=== PATIENT | female | born 1965 | race Caucasian/White ===

== ENCOUNTER → 2022-06-22 | Outpatient (CLI) | payer SELFPAY ==
--- NOTE | 2022-06-22 08:02 | MRI_ITS ---
STUDY: MRI LUMBAR SPINE WITHOUT CONTRAST REASON FOR EXAM: Female, 57 years old. Lumbar Pain with Left Radiculopathy TECHNIQUE: Standardized fat and water weighted pulse sequences were obtained in the sagittal and axial planes. COMPARISON: None FINDINGS: There is straightening of the normal lumbar lordosis. There is no substantial scoliosis. Normal conus medullaris that terminates at the T12-L1 level. No marrow edema or compression deformity or fractures present. Predominance of red marrow reactivation noted throughout the osseous structures. Benign fatty hemangiomas are present at several levels. No aggressive abnormality is seen. L1-2: Mild Schmorl''s node change. Normal disc height, hydration and morphology. Normal bilateral facet joints. Normal central canal and bilateral lateral recesses. Normal bilateral intervertebral neural foramina. L2-3: Normal endplates. Normal disc height, hydration and morphology. Normal bilateral facet joints. Normal central canal and bilateral lateral recesses. Normal bilateral intervertebral neural foramina. L3-4: Normal endplates. Normal disc height, hydration and morphology. Mild facet joint hypertrophy. Normal central canal and bilateral lateral recesses. Normal bilateral intervertebral neural foramina. L4-5: Normal endplates. Diffuse disc desiccation. Normal disc height and morphology. Normal bilateral facet joints. Normal central canal and bilateral lateral recesses. Normal bilateral intervertebral neural foramina. L5-S1: Diffuse disc desiccation with moderate disc space narrowing and a diffuse disc spur complex. Mild facet joint hypertrophy. Normal central canal and bilateral lateral recesses. Normal bilateral intervertebral neural foramina. Normal visualized sacral ala. There is mild paraspinal muscular atrophy. MRI/Spine Lumbar (Routine) IMPRESSION: 1. Multilevel degenerative changes, as described above. Electronically Signed: Gutierrez Reilly MD at 12:42 EDT Reading Location ID and State: [facility] / [place] , Service support ,
== END | disposition home or self-care (01) ==
PROVIDERS: Visit Provider Orthopaedic Surgery
DX: M51.37 Other intervertebral disc degeneration, lumbosacral region (principal)
CPT/HCPCS: 72148

== ENCOUNTER → 2022-11-15 | Outpatient (CLI) | payer SELFPAY ==
--- NOTE | 2022-11-15 16:16 | MRI_ITS ---
MRI of the lumbar spine Comparison study June 22, 2022 INDICATION: Severe back pain TECHNIQUE: Limited study was performed due to inability of the patient to cooperate due to extreme pain consisting of the T1-weighted images in the coronal projection and T2-weighted images in the sagittal projection FINDINGS: There is mild dextroscoliosis or splinting secondary to muscle spasm.. No evidence for acute fracture or subluxation. There are scattered hemangiomata or interosseous lipomatous deposits.. Conus medullaris terminates at T12-L1 There is diffuse degeneration of the disc at L4-5 without focal disc protrusion. At L5-S1, there is narrowing of the disc space and desiccation of the disc with moderate bulging disc osteophyte complex creating moderate bilateral neural foraminal stenosis Given the limited nature of the study y there is little significant change seen when compared with prior exam. MRI/Spine Lumbar (Routine) IMPRESSION: Spondylosis and disc degeneration L4-5 and L5-S1 Bilateral neural foraminal stenosis at L5-S1 secondary to moderate bulging disc osteophyte complex Electronically Signed: Roscoe Moreno MD at 17:52 EST ,
== END | disposition home or self-care (01) ==
PROVIDERS: Visit Provider Orthopaedic Surgery
DX: M51.26 Other intervertebral disc displacement, lumbar region (principal); M51.37 Other intervertebral disc degeneration, lumbosacral region
CPT/HCPCS: 72148

== ENCOUNTER → 2022-11-17 | Outpatient (CLI) | payer SELFPAY ==
--- NOTE | 2022-11-17 12:17 | CT_ITS ---
We are attempting to reach an attending provider to discuss findings. An addendum with communication details will be sent when the communication is complete. STUDY: CT CHEST, ABDOMEN T PELVIS WITH CONTRAST REASON FOR EXAM: Female, 57 years old. Pain RADIATION DOSAGE (If Supplied By Facility): CTDIvol = ( 11.01 ) mGy, DLP = ( 471.94 ) mGycm TECHNIQUE: Transaxial imaging was performed following intravenous administration of IV 100mL Isovue-300. Multiplanar coronal and sagittal images were reformatted. Individualized dose optimization techniques were used for this CT. COMPARISON: MRI lumbar spine November 15, 2022 FINDINGS: CHEST The lungs are clear without focal consolidation pleural effusion or pulmonary edema. There is no visualized pneumothorax. There is no demonstrated pleural abnormality. Normal heart and pericardium. Normal mediastinum. Normal hilar regions. Normal unenhanced pulmonary arteries. Normal aorta arch and descending thoracic aorta. Normal osseous structures. There is a 3 mm nonspecific low attenuating structure in the liver image #12. Liver is otherwise homogeneous. ABDOMEN The visualized lung bases are unremarkable. The visualized portions of the heart are within normal limits. A 3 mm nonspecific low attenuating structure image 12. Normal gallbladder and extrahepatic biliary system. Normal spleen. The visualized splenule anterior to the spleen measuring 1 cm. There is a nonspecific low attenuating cystic structure within the pancreas measuring 5.6 mm which on the coronal view is suggestive of a focus of fat. Normal bilateral adrenal glands. Normal right kidney. Normal left kidney. Normal visualized stomach. Normal small intestine. There is mild to moderate stool within the colon. The appendix is visualized and appears normal. Aorta is partially calcified. Normal inferior vena cava. Normal retroperitoneum. There is a large lobulated abnormal enhancing mass which appears to extend from the level of the left side of the sacrum and possibly the left side sacrum now extending into the left side of the pelvis and the left side perirectal fat as well as extending outside the confines of the pelvis through the piriform canal posterior to the acetabulum. This mass collectively measures 9.8 x 12.3 x 6.8 cm. There is an erosive soft tissue mass involving the left side of the sacrum .. Note is made of visualized hyperemic or varicosities peripheral to the tumor. PELVIS Normal urinary bladder. The uterus is of normal size. The adnexa bilaterally appears normal. Normal visualized small intestine. There is mild to moderate stool in the colon. There is no pelvic fluid. There is a large left-sided pelvic mass which appears to be emanating from the left side of the pelvis possibly in the left side sacral neural foramen that is partially seen and described on the recent MRI of the lumbar spine only. Differential would include the possibility of the bony located mass and/or soft tissue mass which is extended into the left side of the sacrum and the sacral foramen. The appearance of the S3 vertebral body to the level of the S4 which has the appearance of the mass extending out of the bony structure towards the left side of the pelvis into the left-sided gluteal space posteriorly locating the gluteus minimus and she muscle. Aorta is partially calcified. There is visualized extension of the left side internal iliac artery towards this mass. There visualized bilateral tubal ligation clips. There is a large mass extending into the left lower pelvic abdominal wall posterior to the left acetabulum and the left side greater trochanter. There is visualized bony osteopenia otherwise. There is a mild broad disc bulge L4-L5 with minimal neural foramina narrowing. At L5-S1 there is vacuum phenomenon and minimal neural foramina narrowing. The bones are somewhat osteopenic. There is an invasive mass in the left side of the pelvis as detailed above. CT/CT Chest, Abd, Pel w/Contrast IMPRESSION: 9.8 x 12.3 x 6.8 cm. Mass in the left side of the pelvis extending through the left side performed canal and/or soft tissues from the left side of the sacrum from a erosive invasive-appearing process out of the canal out of the pelvis into the left-sided gluteal soft tissues. This mass is peripherally enhancing. The differential includes the possibility of a neurogenic origin tumor extending from the left side sacrum or canal. Versus the possibility of a sarcoma or potentially a large metastatic focus.. Consider etiologies such as chordoma, possible malignant peripheral nerve sheath tumor. This tumor is unknown to the patient recommend consideration for soft tissue sampling. Electronically Signed: Caridad Dc MD at 14:11 EST ,
== END | disposition home or self-care (01) ==
LOC: CT 12:14
PROVIDERS: Referring Provider Orthopaedic Surgery; Visit Provider Orthopaedic Surgery
DX: D49.89 Neoplasm of unspecified behavior of other specified sites (principal); I70.0 Atherosclerosis of aorta; M85.80 Other specified disorders of bone density and structure, unspecified site; R19.00 Intra-abdominal and pelvic swelling, mass and lump, unspecified site; M51.26 Other intervertebral disc displacement, lumbar region; M48.07 Spinal stenosis, lumbosacral region
CPT/HCPCS: 71260; 74177; Q9967

== ENCOUNTER 2022-11-28 08:11 | Outpatient (CLI) | payer BC, SELFPAY ==
[2022-11-28] VITALS (9 sets, daily range): BP systolic 112–167; BP diastolic 60–101; PULSE 88–120; RESP 14–21; TEMP 37.3; O2SAT 95–99; BMI 21.4
--- NOTE | 2022-11-28 | IMM_PTH ---
PATIENT: NUNU ALDRICH LOC: CT U#:[id number] AGE/SX: 57/F ROOM: RE11/28/[address]: Dr. Cisco Dueñas MD : 1965 BED: DIS: 11/28/2022 SPEC #: [id number] RECD: 11/29/22 14:02 STATUS: MONSE REQ #: [id number] LUISA: 11/28/22 00:[address]: Cisco Dueñas DEPT: IMMUNOHISTOCHEMISTRY RECD BY: Laura Bishop ENTERED: 11/29/22 14:06 SP TYPE: IMMUNO OTHR DR: No Primary Care Phys Tissues: Buttock, NOS Procedures: SMA (add) CD31 (add) CD34 (add) CK8 (add) DESMIN (add) KI-67 (add) P53 (add) Vimentin (add) FACTOR VIII (add) Pankeratin (initial) MELAN-A (add) S-100 (add) PHYSICIAN & INSTITUTION [place] [phone] SPECIMEN INFORMATION: Tissue Source: Left gluteal mass Clinical Info: Left gluteal mass Specimen Number: [id number] CPT code: 44687, 50747 x11 METHODOLOGY: Deparaffinized sections of prefer/formalin-fixed tissue or PAP/DQ stained slides are incubated with monoclonal/polyclonal antibodies/oligonucleotide probes. Localization is made via biotin free immunoperoxidase method. Appropriate controls are performed and reacted as expected. Results on target cell population are indicated in the following table: RESULTS: ANTIBODY / CLONE RESULT AE1-3 (AE1/AE3/PCK26) negative CK8 (71kbhfN68) negative Vimentin (V9) positive CD31 (CRISTELA/70A) negative Factor VIII (R Ag) negative CD34 (QBEnd-10) negative Actin (1A4) positive, focal Desmin (CE-R-11) negative Melan A (A103) negative S-100 (4C4.9) negative P53 (DO-7) negative Ki-67 (30-9) positive, ~85% These tests were developed and their performance characteristics determined by [facility]. They may not have been cleared or approved by the U.S. Food and Drug Administration. The FDA has determined that such clearance or approval is not necessary. The above immunohistochemical/dualISH markers are ordered and reviewed by the Pathologist. 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 See comment. SHILPA:catherine 12/07/2022 The specimen is sent to [facility] for expert opinion, reviewed by Dr. Hughes and the above diagnosis is rendered. The complete report is viewable in the patient's EMR. Case has been reviewed in consultation with Dr. Aguilera who concurs with the above diagnosis. IDC:AM
--- NOTE | 2022-11-28 08:26 | CT_ITS ---
PROCEDURE: CT GUIDED biopsy of the left posterior pelvic mass. DATE: 11/28/2022. INDICATION: Female, 57 years old. Left gluteal/posterior pelvic mass PHYSICIAN: Fam Bolanos M.D. RADIATION DOSAGE (If Supplied By Facility): CTDIvol = ( 12.3 ) mGy, DLP = ( 216.84 ) mGycm. Individualized dose optimization techniques were utilized. PROCEDURE: The risks, benefits, and alternatives to the procedure were explained to the patient. The specific risk of hemorrhage requiring further treatment or intervention was detailed and accepted. Follow-up instructions were discussed with the patient as well. Written informed consent was obtained. The patient was brought into the CT suite and placed in the prone position. . An appropriate entry site was identified. The overlying skin was prepped and draped in the usual sterile fashion. 1% lidocaine was administered subcutaneously for local anesthesia. Conscious sedation was performed. The patient received 3 mg of VERSED and 75 mcg of FENTANYL intravenously. Conscious sedation was started at 9:34 AM and terminated at 9:51 AM. The patient was independently monitored by the department nurse. Under CT guidance, a total of 6 passes were performed utilizing an 18-gauge core biopsy needle system. The specimens were then placed in the appropriate fluid and transported to the laboratory for analysis. Hemostasis was obtained. The patient tolerated the procedure well without immediate complications. CT/Biopsy/Inj or Needle Placement IMPRESSION: Successful CT guided biopsy of the left gluteal/posterior pelvic mass, as described above. Conscious sedation protocol was followed. Electronically Signed: Fam Bolanos MD at 10:18 EST ,
[2022-11-28 08:33] LABS: Basophil# 0.05 X10^3/uL; Basophil% 0.4 % (0-1); Eosinophil# 0.14 X10^3/uL; Eosinophils% 1.2 % (0-5); Hematocrit 39.8 % (37-47); Hemoglobin 12.6 g/dL (12.0-15.0); Lymphocyte % 15.2 % (19-41); Mean Corp Hgb Conc 31.7 g/dL (32-36); Mean Corpuscular Hgb 26.4 pg (27.0-32.0); Mean Corpuscular Volume 83.4 fL (81-99); Monocyte# 0.83 X10^3/uL; NRBC Flagged by Analyzer 0 % (0-5); Neutrophil # 8.96 X10^3/uL (2.7-7.7); Neutrophil % 75.7 % (47-70); Platelet Count 709 K/mm3 (150-450); RBC Distribution Width CV 13.5 % (11.6-14.6); RBC Distribution Width SD 41.3 fl (35.1-43.9); Red Blood Count 4.77 M/mm3 (4.2-5.4); White Blood Count 11.8 K/mm3 (4.4-11.0)
[2022-11-28] MEDS: 0.9% Saline Lock 10 ML Syringe IV (09:04)
[2022-11-28 09:09] LABS: International Normalized Ratio 1.2; Prothrombin Time (Protime)PT. 14.5 SECONDS (11.7-14.9)
[2022-11-28 09:10] LABS: Partial Thromboplast Time 31.3 Seconds (24.1-36.2)
[2022-11-28] MEDS: Ondansetron 4 MG/2 ML Vial IV (09:32)
[2022-11-28] MEDS: Midazolam 2 MG/2 ML Syringe IV ×2 (09:33→09:48)
[2022-11-28] MEDS: fentaNYL 100 MCG/2 ML Ampul IV ×2 (09:34→09:48)
--- NOTE | 2022-11-28 09:40 | ASPIGT_PTH ---
PATIENT: NUNU ALDRICH LOC: CT U#:[id number] AGE/SX: 57/F ROOM: RE11/28/[address]: Dr. 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 See comment. SJ:catherine 12/07/2022 COMMENT The specimen is evaluated at the time of biopsy by Dr. Birmingham. Immediate Evaluation = Rare atypical spindle cells noted. The specimen is sent to [facility] for expert opinion, reviewed by Dr. Hughes and the above diagnosis is rendered. The complete report is viewable in the patient's EMR. Immunohistochemistry performed here ([id number]) and also additional immunohistochemical stains performed at [facility] supports the above diagnosis. MDM2 by FISH is pending. Case has been reviewed in consultation with Dr. Aguilera who concurs with the above diagnosis. IDC:AM MICROSCOPIC DESCRIPTION Slides are reviewed. GROSS DESCRIPTION Received in fixative is one container labeled with the patient's name and designated left gluteal mass. The specimen consists of multiple elongated fragments of de la fuente soft tissue that in aggregate measure 1.8 x 0.3 x 0.1 cm. The specimen is totally submitted in one cassette. / SJ:catherine 11/28/2022 TC:0 CPT: 43623, 89346 ADDENDUM ADDENDUM ADDENDUM ADDENDUM ADDENDUM ADDENDUM 12/19/2022 08:34 ADDENDUM 12/19/2022 08:34 ADDENDUM 12/19/2022 08:34 ADDENDUM 12/19/2022 08:34 ADDENDUM 12/19/2022 08:34 FLUORESCENCE IN-SITU HYBRIDIZATION (FISH) FROM [facility] INTERPRETATION: MDM2: Negative / Not amplified Please see complete report in e-chart or EMR
--- NOTE | 2022-11-28 09:40 | ASPIGT_PTH ---
PATIENT: NUNU ALDRICH LOC: CT U#:[id number] AGE/SX: 57/F ROOM: RE11/28/[address]: Dr. 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 See comment. SJ:catherine 12/07/2022 COMMENT The specimen is evaluated at the time of biopsy by Dr. Birmingham. Immediate Evaluation = Rare atypical spindle cells noted. The specimen is sent to [facility] for expert opinion, reviewed by Dr. Hughes and the above diagnosis is rendered. The complete report is viewable in the patient's EMR. Immunohistochemistry performed here ([id number]) and also additional immunohistochemical stains performed at [facility] supports the above diagnosis. MDM2 by FISH is pending. This case was reviewed and diagnosis discussed with Dr. Dueñas on 01/04/2023. Case has been reviewed in consultation with Dr. Aguilera who concurs with the above diagnosis. IDC:AM MICROSCOPIC DESCRIPTION Slides are reviewed. GROSS DESCRIPTION Received in fixative is one container labeled with the patient's name and designated left gluteal mass. The specimen consists of multiple elongated fragments of de la fuente soft tissue that in aggregate measure 1.8 x 0.3 x 0.1 cm. The specimen is totally submitted in one cassette. / SHILPA:catherine 11/28/2022 TC:0 CPT: 86850, 09244 ADDENDUM ADDENDUM ADDENDUM ADDENDUM ADDENDUM ADDENDUM ADDENDUM ADDENDUM ADDENDUM ADDENDUM ADDENDUM ADDENDUM ADDENDUM ADDENDUM ADDENDUM ADDENDUM ADDENDUM ADDENDUM ADDENDUM ADDENDUM ADDENDUM ADDENDUM 01/04/2023 13:16 ADDENDUM 01/08/2023 10:11 ADDENDUM 01/25/2023 10:34 ADDENDUM 03/09/2023 09:30 ADDENDUM 01/04/2023 13:16 ADDENDUM 01/04/2023 13:16 ADDENDUM 01/04/2023 13:16 ADDENDUM 01/04/2023 13:16 ADDENDUM TO SOLID TUMOR IMMUNOHISTOCHEMICAL ANALYSIS FROM [employer]PATH INTERPRETATION: Spindle cell sarcoma, favor adult fibrosarcoma, FNCLCC grade 2. See note. NOTE: The H&E sections show a spindle cell neoplasm with moderate cytologic atypia and fascicular growth pattern. There are coagulative tumor necrosis and increased mitotic activity (6 mitoses / 10HPF). Immunohistochemical stains show that the tumor cells are positive for Caldesmon, while negative for CD34, S100, SOX-10, SMA, MYOGENIN, MUC4, STAT6, and ALK-1. The KI-67 proliferative index is approximately 85%. Negative MDM2 by FISH result excludes dedifferentiated liposarcoma. The findings support the above diagnosis. FLUORESCENCE IN-SITU HYBRIDIZATION (FISH) FROM [facility] INTERPRETATION: MDM2: Negative / Not amplified MMDM2/CEP 12 ratio: 1.0:1 CEP 12 mean copy number 2.0 MDM2 mean copy number 2.0 Number of tumor cells scored 50 Please see complete report in e-chart or EMR ONKOSIGHT ADVANCED SOLID TUMOR NGS REPORT FROM [facility] RESULT SUMMARY: Abnormal IMMUNOTHERAPY BIOMARKERS: Tumor Mutation [place]: Low (4.7 Mutations / MB) Microsatellite Instability: MSI Negative (3.31%) PERTINENT NEGATIVE RESULTS: The following genes are NEGATIVE for clinically relevant mutations. Mutational hotspots and surrounding exonic regions were interrogated for DNA level point mutations and indels (fusions not assayed). AKT1, APC, ARID1A, GERARDO, BRAF, BRCA1, BRCA2, CDH1, CDKN2A, CTNNB1, EGFR, EPCAM, ERBB2, ERBB4, FBXW7, FGFR1, FGFR2, FGFR3, GNA11, GNAQ, GNAS, HRAS, IDH1, IDH2, KDR, KIT, KRAS, MEN1, MET, MLH1, MSH2, NRAS, PDGFRA, PIK3CA, PMS2, POLE, PTEN, PTPN11, RB1, RET, SMAD4, SMO, STK11, TERT, TP53, TSC1, TSC2, VHL Please see complete report in e-chart or EMR This addendum is added to incorporate an outside pathology consultation report. The case was examined at [facility] (#[id number]) and the following diagnosis was rendered. Left gluteal mass, core biopsy: Features consistent with spindle cell sarcoma. Please see complete above mentioned consultation report in EMR This addendum is added to incorporate an outside pathology consultation report. The case was examined at [facility] (#[id number]) and the following diagnosis was rendered. 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 Please see complete above mentioned consultation report in EMR
[2022-11-28] MEDS: Lidocaine 1% (20 ml mdv) 20 ML Vial INFILT (09:44)
== END 2022-11-28 23:59 | disposition home or self-care (01) ==
PROVIDERS: Referring Provider Internal Medicine Medical Oncology; Visit Provider Internal Medicine Medical Oncology
DX: C49.5 Malignant neoplasm of connective and soft tissue of pelvis (principal); F17.210 Nicotine dependence, cigarettes, uncomplicated
CPT/HCPCS: 36415; 77012; 85025; 85610; 85730; 88172; 88305; 88313; 88341; 88342; 99156; J7050; J2405

== ENCOUNTER → 2022-12-01 | Outpatient (CLI) | payer BC, SELFPAY ==
--- NOTE | 2022-12-01 08:54 | MRI_ITS ---
STUDY: MR PELVIS WITH T WITHOUT CONTRAST REASON FOR EXAM: Female, 57 years old. Initial staging of pelvic mass. No finding of large left fascial mass. Biopsy was performed this week. TECHNIQUE: Standardized fat and water weighted pulse sequences were obtained in all 3 orthogonal planes, pre-and post contrast administration. 10ml CLariscan via IV was administered for the contrast portion of the examination. COMPARISON: CT biopsy, November 28, 2022. FINDINGS: Normal urinary bladder. Normal visualized small intestine. Normal visualized colon. Normal uterus and adnexa. There is no pelvic fluid. There is no pelvic lymphadenopathy. Normal visualized pelvic arteries. There is a large bilobed soft tissue mass in the left pelvis. The larger portion of the mass lies internal to the gluteal musculature which is displaced posteriorly and laterally. The mass extends through the left greater sciatic notch into the left issue rectal fossa. The mass measures 8.6 x 13.4 x 9.5 cm in greatest dimension. This appears isointense to skeletal musculature on T1-weighted imaging is of heterogenously lesion increased signal on T2-weighted imaging. This demonstrates intense peripheral calcification with irregular areas of central nonenhancement suggesting central necrosis. Superiorly there are erosive changes along the underside of the left ilium and upper sacrum. The mass displaces the rectum and left levator sling laterally to the right without invasion. Otherwise normal osseous structures. Normal abdominal wall. MRI/Pelvis W/WO Contrast IMPRESSION: 1. Large soft tissue mass extending from the left issue rectal fossa through the greater sciatic notch into the gluteal region. This was biopsied by CT 4 days ago. 2. Invasive changes of the inferior aspect of the left ilium and upper left sacrum. 3. No evidence of lymphadenopathy. Electronically Signed: Dwain Phoenix DO at 18:12 EST Reading Location ID and State: [facility] Tel [phone], Service support ,
== END | disposition home or self-care (01) ==
PROVIDERS: Referring Provider Internal Medicine Medical Oncology; Visit Provider Internal Medicine Medical Oncology
DX: R19.00 Intra-abdominal and pelvic swelling, mass and lump, unspecified site (principal); C49.5 Malignant neoplasm of connective and soft tissue of pelvis; D49.89 Neoplasm of unspecified behavior of other specified sites
CPT/HCPCS: 72197; A9575

== ENCOUNTER → 2023-03-21 | Outpatient (CLI) | payer BC, SELFPAY ==
--- NOTE | 2023-03-21 15:01 | MRI_ITS ---
STUDY: MR PELVIS WITHOUT CONTRAST REASON FOR EXAM: Female, 58 years old. follow up sarcoma s/p XRT -- eval for disease extent pelvis/sacrum TECHNIQUE: Standardized fat and water weighted pulse sequences were obtained in all 3 orthogonal planes. COMPARISON: Pet/CT scan, March 20, 2023. MRI of the pelvis, December 01, 2022. FINDINGS: Normal urinary bladder. Normal visualized small intestine. Normal visualized colon. There is a small fibroid seen in the right lower uterine segment of an otherwise normal uterus. Normal ovaries. There is no pelvic fluid. There is no pelvic mass lesion or lymphadenopathy. Normal visualized pelvic arteries. There is a large soft tissue mass in the left pelvis which involves destructive changes of the the sacrum and left sacroiliac joint and extends into the posterior pelvis between the lower sacrum and rectum and outward through the sciatic foramen into the soft tissues of the left buttock. This measures 17.3 x 11.3 x 12.3 cm in greatest dimension (12.8 x 8.3 x 9.7 cm on the previous MRI.. This is similar in signal intensity to skeletal muscle on T1-weighted imaging and appears heterogenous slightly high density and T2-weighted imaging with focal areas of low signal and low signal internal stranding. This appears to displace the gluteal muscles posteriorly and laterally without direct invasion. There is involvement of the left internal iliac artery. Normal abdominal wall. MRI/Pelvis (Routine) IMPRESSION: 1. Enlarging soft tissue mass in the left pelvis when compared to the previous study. There is infiltrate region of the upper sacrum and sacroiliac joints which was noted on the previous examination. Remainder of the mass appears well contained and does not involve other structures. 2. The remainder of the study is stable. Electronically Signed: Dwain Phoenix DO at 18:13 EDT ,
== END | disposition home or self-care (01) ==
LOC: MRI 15:01
PROVIDERS: Referring Provider Student in an Organized Health Care Education/Training Program; Visit Provider Student in an Organized Health Care Education/Training Program
DX: C49.5 Malignant neoplasm of connective and soft tissue of pelvis (principal)
CPT/HCPCS: 72195

== ENCOUNTER → 2023-04-02 | Outpatient (CLI) | payer BC, SELFPAY ==
[2023-04-02] VITALS (10 sets, daily range): BP systolic 69–105; BP diastolic 46–68; PULSE 67–75; RESP 11–20; TEMP 36.6; O2SAT 95–100; BMI 20.4
--- NOTE | 2023-04-02 | ASPIGT_PTH ---
PATIENT: NUNU ALDRICH LOC: CT U#:[id number] AGE/SX: 58/F ROOM: RE04/02/[address]: Dr. Colten Ac DO : 1965 BED: DIS: 04/02/2023 SPEC #: [id number] RECD: 04/02/23 11:07 STATUS: MONSE OBEY #: [id number] LUISA: 04/02/23 00:[address]: Colten Ac DEPT: SURGICAL PATHOLOGY RECD BY: Colton Shabazz ENTERED: 04/02/23 11:08 SP TYPE: ASP RAD OTHR DR: No Primary Care Phys Tissues: Peritoneum, NOS Procedures: FNA Specimen Adequacy Special Stain Group II Surgery Specimen Level IV Imprint (control) HEADER OPERATION: CT-guided biopsy left retroperitoneal PRE-OP DIAGNOSIS: New lesion posterior to left psoas TISSUE SUBMITTED: Left retroperitoneal mass MICROSCOPIC DIAGNOSIS Left retroperitoneal mass, CT-guided core biopsy: Spindle cell sarcoma, favor adult fibrosarcoma. See comment. SHILPA:catherine 04/09/2023 COMMENT The specimen is evaluated at the time of biopsy by Dr. [place]. Immediate Evaluation = Atypical spindle cells noted. Immunohistochemistry ([id number]) supports the above diagnosis. The specimen is sent to [facility] for expert opinion, reviewed by Dr. Correia and the above diagnosis is rendered. The complete report is viewable in the patient's EMR. Please make reference to previous specimen ([id number]) left gluteal mass, core biopsy with similar diagnosis. Case has been reviewed in consultation with Dr. Aguilera who concurs with the above diagnosis. IDC:AM MICROSCOPIC DESCRIPTION Slides are reviewed. GROSS DESCRIPTION Received in fixative is one container labeled with the patient's name and designated left retroperitoneal. The specimen consists of multiple elongated fragments of de la fuente soft tissue that in aggregate measure 1.5 x 0.1 x 0.1 cm. The specimen is totally submitted in one cassette. Three touch imprints are prepared at the time of core biopsy. / SHILPA:catherine 04/02/2023 TC:0 CPT: 32985, 92325
--- NOTE | 2023-04-02 | IMM_PTH ---
PATIENT: NUNU ALDRICH LOC: CT U#:[id number] AGE/SX: 58/F ROOM: RE04/02/[address]: Dr. Colten Ac DO : 1965 BED: DIS: 04/02/2023 SPEC #: [id number] RECD: 04/03/23 12:47 STATUS: MONSE REStephany #: [id number] LUISA: 04/02/23 00:[address]: Colten Ac DEPT: IMMUNOHISTOCHEMISTRY RECD BY: Laura Bishop ENTERED: 04/03/23 12:50 SP TYPE: IMMUNO OTHR DR: No Primary Care Phys Tissues: Retroperitoneum, NOS Procedures: SMA (add) CD31 (add) CD34 (add) CK8 (add) DESMIN (add) KI-67 (add) P53 (add) Vimentin (add) FACTOR VIII (add) Pankeratin (initial) MELAN-A (add) S-100 (add) PHYSICIAN & INSTITUTION [place] [phone] SPECIMEN INFORMATION: Tissue Source: Left retroperitoneal mass Clinical Info: Left retroperitoneal mass Specimen Number: [id number] CPT code: 53727, 94049 x11 METHODOLOGY: Deparaffinized sections of prefer/formalin-fixed tissue or PAP/DQ stained slides are incubated with monoclonal/polyclonal antibodies/oligonucleotide probes. Localization is made via biotin free immunoperoxidase method. Appropriate controls are performed and reacted as expected. Results on target cell population are indicated in the following table: RESULTS: ANTIBODY / CLONE RESULT AE1-3 (AE1/AE3/PCK26) negative CK8 (99kkwoD93) negative Vimentin (V9) positive CD31 (CRISTELA/70A) negative Factor VIII (R Ag) negative CD34 (QBEnd-10) negative Actin (1A4) negative Desmin (CE-R-11) negative Melan A (A103) negative S-100 (4C4.9) negative P53 (DO-7) positive, rare cells (wild type pattern) Ki-67 (30-9) positive, moderate, ~50% These tests were developed and their performance characteristics determined by [facility]. They may not have been cleared or approved by the U.[place]. Food and Drug Administration. The FDA has determined that such clearance or approval is not necessary. The above immunohistochemical/dualISH markers are ordered and reviewed by the Pathologist. INTERPRETATION: Left retroperitoneal mass, CT-guided biopsy: Spindle cell sarcoma, favor adult fibrosarcoma. See comment. SHILPA:catherine 04/09/2023 The specimen is sent to [facility] for expert opinion, reviewed by Dr. Correia and the above diagnosis is rendered. The complete report is viewable in the patient's EMR.
--- NOTE | 2023-04-02 08:55 | CT_ITS ---
PROCEDURE: CT GUIDED biopsy of the left retroperitoneal mass. DATE: April 02, 2023. INDICATION: Female, 58 years old. Left retroperitoneal mass. History of spindle cell sarcoma. PHYSICIAN: Fam Bolanos M.D. RADIATION DOSAGE (If Supplied By Facility): CTDIvol = ( 18.99 ) mGy, DLP = ( 548.61 ) mGycm. Individualized dose optimization techniques were utilized. PROCEDURE: The risks, benefits, and alternatives to the procedure were explained to the patient. The specific risk of hemorrhage requiring further treatment or intervention was detailed and accepted. Follow-up instructions were discussed with the patient as well. Written informed consent was obtained. The patient was brought into the CT suite and placed in the left side down decubitus position. . An appropriate entry site was identified. The overlying skin was prepped and draped in the usual sterile fashion. 1% lidocaine was administered subcutaneously for local anesthesia. Conscious sedation was performed. The patient received 2 mg of Versed and 50 mcg of fentanyl. Conscious sedation was started at 10:24 AM and terminated at 1049 the patient was independently monitored by the department nurse. Under CT guidance, a total of 5 passes were performed utilizing a 18-gauge core biopsy needle system The specimens were then placed in the appropriate fluid and transported to the laboratory for analysis. Hemostasis was obtained. The patient tolerated the procedure well without immediate complications. CT/Biopsy/Inj or Needle Placement IMPRESSION: Successful CT guided biopsy of the left peritoneal mass utilizing an 18-gauge core biopsy needle system, as described above. Conscious sedation protocol was followed. Electronically Signed: Fam Bolanos MD at 11:30 EDT ,
[2023-04-02 09:01] LABS: Platelet Count 624 K/mm3 (150-450)
[2023-04-02 09:06] LABS: International Normalized Ratio 1.2; Prothrombin Time (Protime)PT. 14.9 SECONDS (11.7-14.9)
[2023-04-02 09:07] LABS: Partial Thromboplast Time 35.2 Seconds (24.1-36.2)
[2023-04-02] MEDS: Ondansetron 4 MG/2 ML Vial IV (10:21)
[2023-04-02] MEDS: Midazolam 2 MG/2 ML Syringe IV (10:24)
[2023-04-02] MEDS: fentaNYL 100 MCG/2 ML Ampul IV (10:26)
[2023-04-02] MEDS: Lidocaine 2% (20 ml mdv) 20 ML Vial INFILT (10:40)
== END | disposition home or self-care (01) ==
LOC: CT 08:44
PROVIDERS: Radiology Diagnostic Radiology; Referring Provider Student in an Organized Health Care Education/Training Program; Visit Provider Student in an Organized Health Care Education/Training Program
DX: C49.5 Malignant neoplasm of connective and soft tissue of pelvis (principal); R94.8 Abnormal results of function studies of other organs and systems; Z01.818 Encounter for other preprocedural examination; F17.210 Nicotine dependence, cigarettes, uncomplicated; M54.50 Low back pain, unspecified
CPT/HCPCS: 49180; 36415; 77012; 85049; 85610; 85730; 88172; 88305; 88313; 88341; 88342; 99156; J7050; J2405

== ENCOUNTER → 2023-04-05 | Outpatient (CLI) | payer BC, SELFPAY ==
--- NOTE | 2023-04-05 16:19 | MRI_ITS ---
STUDY: MRI BRAIN WITHOUT CONTRAST REASON FOR EXAM: Female, 58 years old. lesion seen on PET scan, eval for lesion -- has concern of allergy to contrast TECHNIQUE: Standardized multiplanar fat and water weighted pulse sequences were obtained through the brain without contrast COMPARISON: PET/CT 03/20/2023. HEMISPHERES, CEREBELLUM AND BRAINSTEM: Normal midline developmental anatomy. No Chiari malformation. Unremarkable sella. Cerebellar pontine angles are clear. No evidence of cerebellar other intracranial space occupying mass or mass effect. No diffusion restriction. No evidence of prior hemorrhage. PITUITARY: Infundibulum and pituitary have normal configuration. Midline structures appear normal. CSF SPACES: Appropriate for age. No hydrocephalus. Basal cisterns are patent. VESSELS: 1. There are normal flow voids noted in the great vessels at the skull base ORBITS AND PARANASAL SINUSES: 1. Both globes, extraocular muscles, optic nerves and retrobulbar fat appear unremarkable. 2. Mild paranasal sinus mucoperiosteal thickening. Mastoid air cells are clear. BONY ELEMENTS: Bony elements of the cranial vault, facial skeleton and skull base have normal appearance. SCALP AND SOFT TISSUES: Normal appearance of the soft tissues of the scalp and the visualized face OTHER: None MRI/Brain without Contrast IMPRESSION: 1. No evidence of cerebellar or other intracranial mass 2. Mild sinus disease... Electronically Signed: Micha Hanson MD at 6:10 EDT ,
== END | disposition home or self-care (01) ==
LOC: MRI 16:14
PROVIDERS: Referring Provider Student in an Organized Health Care Education/Training Program; Visit Provider Student in an Organized Health Care Education/Training Program
DX: C49.5 Malignant neoplasm of connective and soft tissue of pelvis (principal); R94.8 Abnormal results of function studies of other organs and systems
CPT/HCPCS: 70551